=== PATIENT | male | born 1995 | race Caucasian/White ===

== ENCOUNTER 2018-04-04 16:26 | Emergency (ER) | payer OTHER, SELFPAY ==
[2018-04-04 16:27] VITALS: BP 142/76; PULSE 87; RESP 16; TEMP 37; BMI 25.9
--- NOTE | 2018-04-04 16:45 | RAD_ITS ---
STUDY: X-RAY - LUMBAR SPINE REASON FOR EXAM: Male, 22 years old. Back and leg pain for 7 years. TECHNIQUE: 3 view(s) of the lumbar spine were obtained. COMPARISON: None FINDINGS: Normal lumbar lordosis. There is no substantial scoliosis. There is a normal alignment of the vertebrae. Normal vertebral bodies and endplates. Normal disc space heights. The soft tissue structures are unremarkable. RAD/Lumbar Spine 2 or 3 Views IMPRESSION: Normal x-ray examination of the lumbar spine. Electronically Signed: Carter East MD at 17:51 EST Tel , Service support ,
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
[2018-04-04] MEDS: Ketorolac 60 MG/2 ML Vial IM (17:20)
--- NOTE | 2018-04-04 18:00 | ED.DEP ---
ED Disposition - Plan for ED Patient: Chief Complaint: Back Prescriptions: Naproxen [Naprosyn] 500 mg PO BID PRN #20 tablet Referrals: Sindi Salazar DO [STAFF PHYSICIAN] -
--- NOTE | 2018-04-04 18:05 | ED.DEP ---
ED Disposition - Plan for ED Patient: Chief Complaint: Back Instructions: ED Sprain Strain Lumbar Prescriptions: Naproxen [Naprosyn] 500 mg PO BID PRN #20 tablet Referrals: Sindi Salazar DO [STAFF PHYSICIAN] -
[2018-04-04 18:10] VITALS: BP 136/70; PULSE 86; RESP 14; O2SAT 100
== END 2018-04-04 18:10 | disposition home or self-care (01) ==
PROVIDERS: Emergency Provider Emergency Medicine
DX: S39.012A Strain of muscle, fascia and tendon of lower back, initial encounter (principal); X58.XXXA Exposure to other specified factors, initial encounter; Y93.66 Activity, soccer; Y99.8 Other external cause status; F12.90 Cannabis use, unspecified, uncomplicated; Z72.89 Other problems related to lifestyle
CPT/HCPCS: 72100; 96372; 99283